=== PATIENT | female | born 1970 | race Caucasian/White ===

== ENCOUNTER 2019-02-23 20:51 | Emergency (ER) | payer SELFPAY ==
[~2019-02-23] VITALS: Ht 172.7 cm; Wt 70.3 kg
[2019-02-23 21:05] VITALS: Ht 172.7 cm; Wt 70.3 kg
[2019-02-23] MEDS ORDERED: [UNRECOGNIZED DRUG - OTHER] (21:06)
[2019-02-23] MEDS ORDERED: CLARITIN 10 MG10 MG PO (21:06)
[2019-02-23] MEDS ORDERED: LEXAPRO5 MG PO (21:06)
[2019-02-23] MEDS ORDERED: KEFLEX500 MG PO (22:40)
[2019-02-23] MEDS ORDERED: HYDROCODON-ACE1 EAC7 PO (22:40)
[2019-02-23 23:44] VITALS: BP 144/72
== END 2019-02-23 23:44 | disposition home or self-care (01) ==
LOC: D.ER 20:51
DX: K04.7 Periapical abscess without sinus (principal)